=== PATIENT | male | born 1975 | race Two or more races ===

== ENCOUNTER 2023-11-14 15:13 | Emergency (ER) | payer MEDICAID, OTHER ==
[~2023-11-14] VITALS: Ht 170.2 cm; Wt 165.0 kg
[2023-11-14 19:30] VITALS: BP 111/68; PULSE 89; RESP 20; TEMP 98.8; O2SAT 96
[2023-11-14] MEDS ORDERED: HYDR-4902 PO (19:55)
[2023-11-14] MEDS: KETOROLAC TROMETH 60MG/2ML VIAL IM ONE (21:32)
[2023-11-14] MEDS: HYDROcodone-ACET 5/325MG TAB PO ONE (21:32)
== END 2023-11-14 21:57 | disposition home or self-care (01) ==
LOC: ER 15:13
DX: S93.601A Unspecified sprain of right foot, initial encounter (principal); S93.401A Sprain of unspecified ligament of right ankle, initial encounter; W01.0XXA Fall on same level from slipping, tripping and stumbling without subsequent striking against object, initial encounter; Y93.89 Activity, other specified; Y92.89 Other specified places as the place of occurrence of the external cause; Y99.8 Other external cause status
CPT/HCPCS: 29515; 73610; 73630; 96372; 99284; J1885